=== PATIENT | male | born 1965 | race Caucasian/White ===

== ENCOUNTER 2022-01-18 10:17 | Inpatient (IN) | payer OTHER ==
[2022-01-18] MEDS ORDERED: BISMUTH SUBSALICYLATE 262 MG/15 ML BTL PO PRN (11:54)
[2022-01-18] MEDS ORDERED: NALOXONE HCL (KLOXXADO) 8 MG SPRAY NS PRN (11:54)
[2022-01-18] MEDS ORDERED: MAGNESIUM HYDROX 2400MG/30ML ORAL SUSPENSION 30 ML CUP PO PRN (11:54)
[2022-01-18] MEDS ORDERED: ONDANSETRON *ODT* 4 MG TABLET SL PRN (11:54)
[2022-01-18] MEDS ORDERED: MAG HYDROX/AL HYDROX/SIMETH 30 ML UNIT-DOSE CUP PO PRN (11:54)
[2022-01-18] MEDS ORDERED: NICOTINE 10 MG CARTRIDGE (INHALER) IH PRN (11:54)
[2022-01-18] MEDS ORDERED: NICOTINE POLACRILEX 2 MG GUM BUC PRN (11:54)
[2022-01-18] MEDS ORDERED: BENZOCAINE/MENTHOL (CHLORASEPTIC ) LOZENGE MM PRN (11:54)
[2022-01-18] MEDS ORDERED: DICYCLOMINE HCL 10 MG CAPSULE PO PRN (11:54)
[2022-01-18] MEDS ORDERED: MAGNESIUM CITRATE 300 ML BOTTLE PO PRN (11:54)
[2022-01-18] MEDS ORDERED: IBUPROFEN 600 MG TABLET (FP) PO PRN (11:54)
[2022-01-18] MEDS ORDERED: ACETAMINOPHEN 325 MG TABLET (FP) PO PRN ×2 (11:54)
[2022-01-18] MEDS ORDERED: IBUPROFEN 400 MG TABLET (FP) PO PRN (11:54)
[2022-01-18] MEDS ORDERED: LOPERAMIDE HCL 2 MG CAPSULE PO PRN (11:54)
[2022-01-18] MEDS ORDERED: IBUPROFEN 400 MG TABLET (FP) PO ONE (12:07)
[2022-01-18] MEDS: METHOCARBAMOL 500 MG TABLET PO PRN (12:33)
[2022-01-18] MEDS: hydrOXYzine PAMOATE 25 MG CAPSULE (FP) PO SCH ×3 (13:44→22:19)
[2022-01-18 15:59] LABS: HEMATOCRIT 38.3 % (35.4-49); HEMOGLOBIN 12.7 GM/dL (11.7-16.9); MCH 30.7 pg (25.7-33.7); MCHC 33.2 g/dl (32.0-35.9); MEAN CELL VOLUME 92.4 fl (80-96); MEAN PLT VOLUME 9.5 fl (7.5-11.1); PLATELET COUNT 169 10^3/uL (134-434); RBC 4.14 M/mm3 (4.00-5.60); RDW 15.3 % (11.9-15.9); WHITE BLOOD COUNT 5.6 K/mm3 (4.0-10.0)
[2022-01-18 16:08] LABS: CREATININE 1.1 mg/dL (0.55-1.3)
[2022-01-18 16:10] LABS: ALBUMIN 3.9 g/dl (3.4-5.0); BLOOD UREA NITROGEN 19.6 mg/dL (7-18); CALCIUM 9.2 mg/dL (8.5-10.1)
[2022-01-18 16:11] LABS: BILIRUBIN,TOTAL 0.5 mg/dL (0.2-1); TOT PROT 7.4 g/dl (6.4-8.2)
[2022-01-18] MEDS: THIAMINE HCL 100 MG TABLET (FP) PO SCH (22:19)
[2022-01-18] MEDS: MELATONIN 5 MG TABLETS PO SCH (22:19)
[2022-01-19] MEDS ORDERED: methaDONE HCL 10 MG TABLET ONE (04:33)
[2022-01-19] MEDS ORDERED: methaDONE HCL 40 MG DISPERSABLE TABLET ONE (04:33)
[2022-01-19] MEDS ORDERED: methaDONE HCL 10 MG TABLET PO SCH (06:00)
[2022-01-19] MEDS: methaDONE 40 MG, methaDONE 30 MG PO SCH (06:11)
[2022-01-19] MEDS: hydrOXYzine PAMOATE 25 MG CAPSULE (FP) PO SCH ×5 (06:11→22:55)
[2022-01-19] MEDS: PRENATAL VITAMINS W/ FOLIC ACID TABLET (FP) PO SCH (11:08)
[2022-01-19] MEDS: MELATONIN 5 MG TABLETS PO SCH (22:55)
[2022-01-19] MEDS: THIAMINE HCL 100 MG TABLET (FP) PO SCH (22:55)
[2022-01-20] MEDS ORDERED: methaDONE HCL 40 MG DISPERSABLE TABLET ONE (04:45)
[2022-01-20] MEDS ORDERED: methaDONE HCL 10 MG TABLET ONE (04:45)
[2022-01-20] MEDS: methaDONE 40 MG, methaDONE 30 MG PO SCH (05:42)
[2022-01-20] MEDS: hydrOXYzine PAMOATE 25 MG CAPSULE (FP) PO SCH ×3 (05:42→13:25)
[2022-01-20 09:36] VITALS: BP 123/77; PULSE 59; TEMP 97
[2022-01-20] MEDS: PRENATAL VITAMINS W/ FOLIC ACID TABLET (FP) PO SCH (11:21)
[2022-01-20] MEDS: METHOCARBAMOL 500 MG TABLET PO PRN (11:21)
== END 2022-01-20 16:10 | disposition home or self-care (01) | DRG 773 ==
LOC: YASAS 10:17 → Y6N 11:57
PROVIDERS: ADMIT Allergy & Immunology; ATTEND Surgery
PROC: HZ2ZZZZ Detoxification Services for Substance Abuse Treatment (ICD-10-PCS; principal; 2022-01-18)
DX: F11.23 Opioid dependence with withdrawal (principal); F10.230 Alcohol dependence with withdrawal, uncomplicated; F14.20 Cocaine dependence, uncomplicated; F16.20 Hallucinogen dependence, uncomplicated; F12.20 Cannabis dependence, uncomplicated; F17.210 Nicotine dependence, cigarettes, uncomplicated; M17.11 Unilateral primary osteoarthritis, right knee; R26.89 Other abnormalities of gait and mobility; Z51.81 Encounter for therapeutic drug level monitoring
CPT/HCPCS: 36415; 80053; 85027; 86780; 87811; 93005; 93010; C9803-CS; U0003; U0005

== ENCOUNTER 2022-07-29 09:37 | Inpatient (IN) | payer OTHER ==
[2022-07-29 10:11] VITALS: BMI 28.8
[2022-07-29] MEDS ORDERED: MAGNESIUM HYDROX 2400MG/30ML ORAL SUSPENSION 30 ML CUP PO PRN (14:47)
[2022-07-29] MEDS ORDERED: P-EPHED 60MG/TRIPROLIDI 2.5MG TABLET PO PRN (14:47)
[2022-07-29] MEDS ORDERED: POLYETHYLENE GLYCOL (HEALTHYLAX) 3350 17 GM PACKET PO PRN (14:47)
[2022-07-29] MEDS ORDERED: LOPERAMIDE HCL 2 MG CAPSULE PO PRN (14:47)
[2022-07-29] MEDS ORDERED: BENZOCAINE/MENTHOL (CHLORASEPTIC ) LOZENGE MM PRN (14:47)
[2022-07-29] MEDS ORDERED: MAG HYDROX/AL HYDROX/SIMETH 30 ML UNIT-DOSE CUP PO PRN (14:47)
[2022-07-29] MEDS ORDERED: guaiFENesin 200 MG/10 ML 10 ML UNIT-DOSE CUPS PO PRN (14:47)
[2022-07-29] MEDS ORDERED: ALBUTEROL SO4 HFA INHALER IH PRN (14:57)
[2022-07-29] MEDS: THIAMINE HCL 100 MG TABLET (FP) PO SCH (21:31)
[2022-07-29] MEDS: MELATONIN 5 MG TABLETS PO SCH (21:31)
[2022-07-29] MEDS: hydrOXYzine PAMOATE 25 MG CAPSULE (FP) PO PRN (21:31)
[2022-07-30] MEDS: NICOTINE 7 MG/24 HOURS TOPICAL PATCH TD SCH (10:07)
[2022-07-30] MEDS: PRENATAL VITAMINS W/ FOLIC ACID TABLET (FP) PO SCH (10:07)
[2022-07-30] MEDS: THIAMINE HCL 100 MG TABLET (FP) PO SCH (21:25)
[2022-07-30] MEDS: MELATONIN 5 MG TABLETS PO SCH (21:25)
[2022-07-31] MEDS ORDERED: methaDONE HCL 10 MG TABLET PO ONE (09:56)
[2022-07-31] MEDS: PRENATAL VITAMINS W/ FOLIC ACID TABLET (FP) PO SCH (10:11)
[2022-07-31] MEDS: NICOTINE 7 MG/24 HOURS TOPICAL PATCH TD SCH (10:11)
[2022-07-31] MEDS ORDERED: methaDONE 40 MG, methaDONE 30 MG PO ONE (10:30)
[2022-07-31] MEDS ORDERED: PRENATAL VITAMINS W/ FOLIC ACID TABLET (FP) PO PRN (11:13)
[2022-07-31] MEDS ORDERED: NICOTINE 7 MG/24 HOURS TOPICAL PATCH TD PRN (11:14)
[2022-07-31 12:07] LABS: HEMATOCRIT 45.9 % (35.4-49); HEMOGLOBIN 14.9 GM/dL (11.7-16.9); MCH 29.6 pg (25.7-33.7); MCHC 32.4 g/dl (32.0-35.9); MEAN CELL VOLUME 91.5 fl (80-96); MEAN PLT VOLUME 9.5 fl (7.5-11.1); PLATELET COUNT 199 10^3/uL (134-434); RBC 5.02 M/mm3 (4.00-5.60); WHITE BLOOD COUNT 3.4 K/mm3 (4.0-10.0)
[2022-07-31 12:13] LABS: CALCIUM 9.4 mg/dL (8.5-10.1)
[2022-07-31 12:20] LABS: ALBUMIN 3.2 g/dl (3.4-5.0); BLOOD UREA NITROGEN 19.1 mg/dL (7-18)
[2022-07-31 12:23] LABS: CREATININE 1.1 mg/dL (0.55-1.3)
[2022-07-31 12:25] LABS: BILIRUBIN,TOTAL 0.6 mg/dL (0.2-1); TOT PROT 7.4 g/dl (6.4-8.2)
[2022-07-31 20:12] LABS: PH,URINE 7.5 (5.0-8.0); URINE APPEARANCE CLEAR; URINE BILIRUBIN NEGATIVE (NEGATIVE); URINE COLOR YELLOW; URINE GLUCOSE (UA) NEGATIVE (NEGATIVE); URINE KETONE NEGATIVE (NEGATIVE); URINE LEUK ESTERASE NEGATIVE (NEGATIVE); URINE NITRITE NEGATIVE (NEGATIVE); URINE PROTEIN NEGATIVE (NEGATIVE)
[2022-07-31] MEDS: MELATONIN 5 MG TABLETS PO SCH (21:34)
[2022-07-31] MEDS: hydrOXYzine PAMOATE 25 MG CAPSULE (FP) PO PRN (21:34)
[2022-07-31] MEDS: THIAMINE HCL 100 MG TABLET (FP) PO SCH (21:34)
[2022-08-01] MEDS: methaDONE HCL 40 MG DISPERSABLE TABLET PO SCH ×3 (07:07→07:16)
[2022-08-01] MEDS: NICOTINE 10 MG CARTRIDGE (INHALER) IH PRN (08:56)
[2022-08-01] MEDS: BACLOFEN 10 MG TABLET (FP) PO PRN (15:40)
[2022-08-01] MEDS: MELATONIN 5 MG TABLETS PO SCH (21:12)
[2022-08-01] MEDS: THIAMINE HCL 100 MG TABLET (FP) PO SCH (21:12)
[2022-08-01] MEDS: ACETAMINOPHEN 325 MG TABLET (FP) PO PRN (21:13)
[2022-08-02] MEDS: methaDONE HCL 40 MG DISPERSABLE TABLET PO SCH (06:41)
[2022-08-02] MEDS: ACETAMINOPHEN 325 MG TABLET (FP) PO PRN (19:39)
[2022-08-02] MEDS: THIAMINE HCL 100 MG TABLET (FP) PO SCH (21:12)
[2022-08-02] MEDS: MELATONIN 5 MG TABLETS PO SCH (21:12)
[2022-08-03] MEDS: methaDONE HCL 40 MG DISPERSABLE TABLET PO SCH (06:55)
[2022-08-03] MEDS: NICOTINE 10 MG CARTRIDGE (INHALER) IH PRN (11:52)
[2022-08-03] MEDS: BACLOFEN 10 MG TABLET (FP) PO PRN ×2 (15:41→21:12)
[2022-08-03] MEDS: THIAMINE HCL 100 MG TABLET (FP) PO SCH (21:12)
[2022-08-03] MEDS: MELATONIN 5 MG TABLETS PO SCH (21:12)
[2022-08-03] MEDS: hydrOXYzine PAMOATE 25 MG CAPSULE (FP) PO PRN (21:12)
[2022-08-04] MEDS: methaDONE HCL 40 MG DISPERSABLE TABLET PO SCH (06:21)
[2022-08-04] MEDS: BACLOFEN 10 MG TABLET (FP) PO PRN (21:16)
[2022-08-04] MEDS: THIAMINE HCL 100 MG TABLET (FP) PO SCH (21:16)
[2022-08-04] MEDS: MELATONIN 5 MG TABLETS PO SCH (21:16)
[2022-08-05] MEDS: IBUPROFEN 400 MG TABLET (FP) PO PRN (00:38)
[2022-08-05] MEDS: methaDONE HCL 40 MG DISPERSABLE TABLET PO SCH (06:09)
[2022-08-05] MEDS: BACLOFEN 10 MG TABLET (FP) PO PRN ×2 (09:27→21:09)
[2022-08-05] MEDS: MELATONIN 5 MG TABLETS PO SCH (21:09)
[2022-08-05] MEDS: THIAMINE HCL 100 MG TABLET (FP) PO SCH (21:09)
[2022-08-05] MEDS: hydrOXYzine PAMOATE 25 MG CAPSULE (FP) PO PRN (21:09)
[2022-08-06] MEDS: methaDONE HCL 40 MG DISPERSABLE TABLET PO SCH (06:17)
[2022-08-06] MEDS: NICOTINE 10 MG CARTRIDGE (INHALER) IH PRN (11:17)
[2022-08-06] MEDS: IBUPROFEN 400 MG TABLET (FP) PO PRN (18:38)
[2022-08-06] MEDS: THIAMINE HCL 100 MG TABLET (FP) PO SCH (21:01)
[2022-08-06] MEDS: hydrOXYzine PAMOATE 25 MG CAPSULE (FP) PO PRN (21:01)
[2022-08-06] MEDS: BACLOFEN 10 MG TABLET (FP) PO PRN (21:01)
[2022-08-06] MEDS: MELATONIN 5 MG TABLETS PO SCH (21:01)
[2022-08-07] MEDS: methaDONE HCL 40 MG DISPERSABLE TABLET PO SCH (06:40)
[2022-08-07] MEDS: NICOTINE 10 MG CARTRIDGE (INHALER) IH PRN (10:16)
[2022-08-07] MEDS: BACLOFEN 10 MG TABLET (FP) PO PRN (21:15)
[2022-08-07] MEDS: hydrOXYzine PAMOATE 25 MG CAPSULE (FP) PO PRN (21:15)
[2022-08-07] MEDS: MELATONIN 5 MG TABLETS PO SCH (21:15)
[2022-08-07] MEDS: THIAMINE HCL 100 MG TABLET (FP) PO SCH (21:15)
[2022-08-08] MEDS: methaDONE HCL 40 MG DISPERSABLE TABLET PO SCH (06:05)
[2022-08-08 06:29] VITALS: BP 109/75; PULSE 64; RESP 16; TEMP 97.1
== END 2022-08-08 09:28 | disposition home or self-care (01) | DRG 772 ==
LOC: YASAS 09:37 → Y3E 15:24
PROVIDERS: ADMIT Allergy & Immunology; ATTEND Psychiatry & Neurology Pain Medicine
PROC: HZ42ZZZ Group Counseling for Substance Abuse Treatment, Cognitive-Behavioral (ICD-10-PCS; principal; 2022-07-29)
DX: F11.20 Opioid dependence, uncomplicated (principal); F10.20 Alcohol dependence, uncomplicated; F14.20 Cocaine dependence, uncomplicated; F17.210 Nicotine dependence, cigarettes, uncomplicated; F20.9 Schizophrenia, unspecified; F19.24 Other psychoactive substance dependence with psychoactive substance-induced mood disorder; F32.A Depression, unspecified; J45.909 Unspecified asthma, uncomplicated; R73.03 Prediabetes; Z99.89 Dependence on other enabling machines and devices; Z56.0 Unemployment, unspecified; Z59.00 Homelessness unspecified
CPT/HCPCS: 36415; 80053; 81003; 82962; 85027; 86780; 86803; 87522; 87811; C9803-CS; J0475; U0003; U0005

== ENCOUNTER 2022-09-27 15:45 | Inpatient (IN) | payer OTHER ==
[2022-09-27 16:34] VITALS: BMI 29.2
[2022-09-27] MEDS ORDERED: IBUPROFEN 400 MG TABLET (FP) PO PRN (17:32)
[2022-09-27] MEDS ORDERED: P-EPHED 60MG/TRIPROLIDI 2.5MG TABLET PO PRN (17:32)
[2022-09-27] MEDS ORDERED: ACETAMINOPHEN 325 MG TABLET (FP) PO PRN ×2 (17:32)
[2022-09-27] MEDS ORDERED: NALOXONE HCL 0.4 MG/ML VIAL IM PRN (17:32)
[2022-09-27] MEDS ORDERED: ONDANSETRON *ODT* 4 MG TABLET SL PRN (17:32)
[2022-09-27] MEDS ORDERED: POLYETHYLENE GLYCOL (HEALTHYLAX) 3350 17 GM PACKET PO PRN (17:32)
[2022-09-27] MEDS ORDERED: LOPERAMIDE HCL 2 MG CAPSULE PO PRN (17:32)
[2022-09-27] MEDS ORDERED: NICOTINE 10 MG CARTRIDGE (INHALER) IH PRN (17:32)
[2022-09-27] MEDS ORDERED: BENZOCAINE/MENTHOL (CHLORASEPTIC ) LOZENGE MM PRN (17:32)
[2022-09-27] MEDS ORDERED: NICOTINE POLACRILEX 2 MG GUM BUC PRN (17:32)
[2022-09-27] MEDS ORDERED: MELATONIN 5 MG TABLETS PO PRN (17:32)
[2022-09-27] MEDS ORDERED: ALBUTEROL SO4 HFA INHALER IH PRN (17:32)
[2022-09-27] MEDS ORDERED: hydrOXYzine PAMOATE 25 MG CAPSULE (FP) PO PRN (17:32)
[2022-09-27] MEDS ORDERED: MAGNESIUM HYDROX 2400MG/30ML ORAL SUSPENSION 30 ML CUP PO PRN (17:32)
[2022-09-27] MEDS ORDERED: guaiFENesin 200 MG/10 ML 10 ML UNIT-DOSE CUPS PO PRN (17:32)
[2022-09-27] MEDS ORDERED: MAG HYDROX/AL HYDROX/SIMETH 30 ML UNIT-DOSE CUP PO PRN (17:32)
[2022-09-27] MEDS ORDERED: DICYCLOMINE HCL 10 MG CAPSULE PO PRN (17:32)
[2022-09-27] MEDS ORDERED: IBUPROFEN 600 MG TABLET (FP) PO PRN (17:32)
[2022-09-27] MEDS ORDERED: BISMUTH SUBSALICYLATE 524 MG/30 ML PO PRN (17:32)
[2022-09-27] MEDS ORDERED: NALOXONE HCL (KLOXXADO) 8 MG SPRAY NS PRN (17:32)
[2022-09-27] MEDS ORDERED: diazePAM 5 MG TABLET PO PRN (17:35)
[2022-09-27] MEDS ORDERED: BACITRACIN ZINC 15 GM TUBE TOPICAL OINTMENT TP SCH (17:45)
[2022-09-27] MEDS: SULFAMETHOXAZOLE/TRIMETHOPRIM 800MG/160MG D.S. TABLET PO SCH (22:23)
[2022-09-27] MEDS: THIAMINE HCL 100 MG TABLET (FP) PO SCH (22:23)
[2022-09-27] MEDS: BACITRACIN 0.9 GM PACKET TP SCH (22:24)
[2022-09-28] MEDS: METHOCARBAMOL 500 MG TABLET PO PRN ×2 (00:45→10:09)
[2022-09-28] MEDS ORDERED: LORazepam 1 MG TABLET PO PRN (08:58)
[2022-09-28] MEDS: BACITRACIN 0.9 GM PACKET TP SCH ×2 (10:08→22:18)
[2022-09-28] MEDS: LORazepam 2 MG TABLET PO SCH ×3 (10:08→22:18)
[2022-09-28] MEDS: methaDONE HCL 40 MG DISPERSABLE TABLET PO SCH (10:08)
[2022-09-28] MEDS: SULFAMETHOXAZOLE/TRIMETHOPRIM 800MG/160MG D.S. TABLET PO SCH ×2 (10:09→22:18)
[2022-09-28] MEDS: PRENATAL VITAMINS W/ FOLIC ACID TABLET (FP) PO SCH (10:09)
[2022-09-28 11:14] LABS: HEMATOCRIT 36.5 % (35.4-49); HEMOGLOBIN 11.9 GM/dL (11.7-16.9); MCH 29.5 pg (25.7-33.7); MCHC 32.6 g/dl (32.0-35.9); MEAN CELL VOLUME 90.6 fl (80-96); MEAN PLT VOLUME 9.8 fl (7.5-11.1); PLATELET COUNT 182 10^3/uL (134-434); RBC 4.03 M/mm3 (4.00-5.60); RDW 15.5 % (11.9-15.9); WHITE BLOOD COUNT 5.5 K/mm3 (4.0-10.0)
[2022-09-28 11:46] LABS: BLOOD UREA NITROGEN 23.4 mg/dL (7-18)
[2022-09-28 11:55] LABS: ALBUMIN 3.2 g/dl (3.4-5.0); CALCIUM 8.9 mg/dL (8.5-10.1)
[2022-09-28 11:58] LABS: CREATININE 1.3 mg/dL (0.55-1.3)
[2022-09-28 12:00] LABS: BILIRUBIN,TOTAL 0.4 mg/dL (0.2-1); TOT PROT 7.1 g/dl (6.4-8.2)
[2022-09-28] MEDS: THIAMINE HCL 100 MG TABLET (FP) PO SCH (22:18)
[2022-09-29] MEDS: methaDONE HCL 40 MG DISPERSABLE TABLET PO SCH (05:52)
[2022-09-29] MEDS: LORazepam 2 MG TABLET PO SCH ×2 (05:52→10:19)
[2022-09-29 09:15] VITALS: BP 113/87; PULSE 74; RESP 15; TEMP 97.7
[2022-09-29] MEDS: SULFAMETHOXAZOLE/TRIMETHOPRIM 800MG/160MG D.S. TABLET PO SCH (10:16)
[2022-09-29] MEDS: PRENATAL VITAMINS W/ FOLIC ACID TABLET (FP) PO SCH (10:16)
[2022-09-29] MEDS: BACITRACIN 0.9 GM PACKET TP SCH (10:16)
[2022-09-29] MEDS: METHOCARBAMOL 500 MG TABLET PO PRN (10:16)
[2022-09-30] MEDS ORDERED: LORazepam 1 MG TABLET PO SCH (05:00)
[2022-10-01] MEDS ORDERED: LORazepam 0.5 MG TABLET PO PRN
[2022-10-01] MEDS ORDERED: LORazepam 0.5 MG TABLET PO SCH (05:00)
[2022-10-02] MEDS ORDERED: LORazepam 0.5 MG TABLET PO ONE (05:00)
== END 2022-09-29 12:45 | disposition left against medical advice (07) | DRG 770 ==
LOC: YASAS 15:45 → Y6N 17:54
PROVIDERS: ADMIT Allergy & Immunology; ATTEND Surgery
PROC: HZ2ZZZZ Detoxification Services for Substance Abuse Treatment (ICD-10-PCS; principal; 2022-09-27)
DX: F10.230 Alcohol dependence with withdrawal, uncomplicated (principal); F11.20 Opioid dependence, uncomplicated; F14.20 Cocaine dependence, uncomplicated; F16.20 Hallucinogen dependence, uncomplicated; F17.210 Nicotine dependence, cigarettes, uncomplicated; J45.909 Unspecified asthma, uncomplicated
CPT/HCPCS: 36415; 80053; 83036; 84520; 85027; 86780; 87811; C9803-CS; U0003; U0005

== ENCOUNTER 2023-05-21 16:34 | Inpatient (IN) | payer OTHER ==
[2023-05-21 18:26] VITALS: BMI 28.3
[2023-05-21] MEDS ORDERED: NALOXONE HCL (KLOXXADO) 8 MG SPRAY NS PRN (21:22)
[2023-05-21] MEDS ORDERED: COLLOIDAL OATMEAL 1 BAR EACH TP PRN (21:22)
[2023-05-21] MEDS ORDERED: IBUPROFEN 400 MG TABLET (FP) PO PRN (21:22)
[2023-05-21] MEDS ORDERED: POLYETHYLENE GLYCOL (HEALTHYLAX) 3350 17 GM PACKET PO PRN (21:22)
[2023-05-21] MEDS ORDERED: LOPERAMIDE HCL 2 MG CAPSULE PO PRN (21:22)
[2023-05-21] MEDS ORDERED: BENZOCAINE/MENTHOL (CHLORASEPTIC ) LOZENGE MM PRN (21:22)
[2023-05-21] MEDS ORDERED: NALOXONE HCL 0.4 MG/ML VIAL IM PRN (21:22)
[2023-05-21] MEDS ORDERED: MAG HYDROX/AL HYDROX/SIMETH 30 ML UNIT-DOSE CUP PO PRN (21:22)
[2023-05-21] MEDS ORDERED: hydrOXYzine PAMOATE 25 MG CAPSULE (FP) PO PRN (21:22)
[2023-05-21] MEDS ORDERED: MAGNESIUM HYDROX 2400MG/30ML ORAL SUSPENSION 30 ML CUP PO PRN (21:22)
[2023-05-21] MEDS ORDERED: guaiFENesin 600 MG TABLET.ER (FP) PO PRN (21:22)
[2023-05-21] MEDS ORDERED: BENZONATATE 200 MG CAPSULE PO PRN (21:22)
[2023-05-21] MEDS: THIAMINE HCL 100 MG TABLET (FP) PO SCH (23:40)
[2023-05-21] MEDS: MELATONIN 5 MG TABLETS PO SCH (23:40)
[2023-05-22] MEDS ORDERED: TUBERCULIN PPD 5 TU/0.1ML SYRINGE (IN PATIENT USE ONLY) ID ONE (01:24)
[2023-05-22] MEDS ORDERED: ALBUTEROL SO4 HFA INHALER IH PRN (06:08)
[2023-05-22] MEDS: NICOTINE 14 MG/24 HOURS TOPICAL PATCH TD SCH (09:49)
[2023-05-22] MEDS: PRENATAL VITAMINS W/ FOLIC ACID TABLET (FP) PO SCH (09:49)
[2023-05-22] MEDS ORDERED: TUBERCULIN PPD 5 TU/0.1ML VIAL ID ONE (10:57)
[2023-05-22 11:51] LABS: CHLORIDE 108 mmol/L (98-107); POTASSIUM 4.1 mmol/L (3.5-5.1); SODIUM 141 mmol/L (136-145)
[2023-05-22 11:55] LABS: ANION GAP 5 mmol/L (4-13); BLOOD UREA NITROGEN 19.9 mg/dL (7-18); CALCIUM 8.8 mg/dL (8.5-10.1); CO2 29 mmol/L (21-32)
[2023-05-22 11:56] LABS: CREATININE 0.8 mg/dL (0.55-1.3); GLUCOSE,RANDOM 99 mg/dL (74-106)
[2023-05-22 11:57] LABS: SGOT/AST 31 U/L (15-37); SGPT/ALT 40 U/L (13-61)
[2023-05-22 11:58] LABS: TOT PROT 6.7 g/dl (6.4-8.2)
[2023-05-22 11:59] LABS: ALK PHOS 65 U/L (45-117)
[2023-05-22 12:01] LABS: HEMOGLOBIN 12.9 GM/dL (11.7-16.9); MCH 29.6 pg (25.7-33.7); MEAN CELL VOLUME 89.5 fl (80-96); MEAN PLT VOLUME 8.8 fl (7.5-11.1); PLATELET COUNT 243 10^3/uL (134-434); RBC 4.36 M/mm3 (4.00-5.60); RDW 15.6 % (11.9-15.9); WHITE BLOOD COUNT 4.5 K/mm3 (4.0-10.0)
[2023-05-22 12:19] LABS: SYPHILIS W/ RPR CONF NON-REACTIVE (NONREACTIVE)
[2023-05-22 15:30] LABS: EPI CELLS 7 /uL (0-25.1); HYALINE CASTS 1 /uL (0-3.1); URINE APPEARANCE CLEAR; URINE BACTERIA 45 /uL (0-1359); URINE BILIRUBIN NEGATIVE (NEGATIVE); URINE COLOR YELLOW; URINE GLUCOSE (UA) NEGATIVE (NEGATIVE); URINE KETONE NEGATIVE (NEGATIVE); URINE LEUK ESTERASE TRACE (NEGATIVE); URINE NITRITE NEGATIVE (NEGATIVE); URINE PROTEIN TRACE (NEGATIVE); URINE RBC 8 /uL (0-23.9); URINE WBC 32 /uL (0-25.8)
[2023-05-22] MEDS: THIAMINE HCL 100 MG TABLET (FP) PO SCH (22:07)
[2023-05-22] MEDS: MELATONIN 5 MG TABLETS PO SCH (22:07)
[2023-05-23] MEDS: PRENATAL VITAMINS W/ FOLIC ACID TABLET (FP) PO SCH (10:38)
[2023-05-23] MEDS: NICOTINE 14 MG/24 HOURS TOPICAL PATCH TD SCH (10:38)
[2023-05-23] MEDS ORDERED: BUPRENORPHINE/NALOXONE 8 MG/2 MG FILM PACKET SL ONE (15:18)
[2023-05-23] MEDS: THIAMINE HCL 100 MG TABLET (FP) PO SCH (21:05)
[2023-05-23] MEDS: MELATONIN 5 MG TABLETS PO SCH (21:05)
[2023-05-24] MEDS: BUPRENORPHINE/NALOXONE 8 MG/2 MG FILM PACKET SL SCH ×2 (10:27→21:03)
[2023-05-24] MEDS: NICOTINE 14 MG/24 HOURS TOPICAL PATCH TD SCH (10:28)
[2023-05-24] MEDS: PRENATAL VITAMINS W/ FOLIC ACID TABLET (FP) PO SCH (10:29)
[2023-05-24] MEDS: NICOTINE POLACRILEX 2 MG GUM BUC PRN (10:30)
[2023-05-24] MEDS: IBUPROFEN 600 MG TABLET (FP) PO PRN (14:14)
[2023-05-24] MEDS: MELATONIN 5 MG TABLETS PO SCH (21:03)
[2023-05-24] MEDS: THIAMINE HCL 100 MG TABLET (FP) PO SCH (21:03)
[2023-05-25] MEDS: IBUPROFEN 600 MG TABLET (FP) PO PRN ×3 (02:31→18:59)
[2023-05-25] MEDS: BUPRENORPHINE/NALOXONE 8 MG/2 MG FILM PACKET SL SCH ×3 (06:36→18:55)
[2023-05-25] MEDS: NICOTINE 14 MG/24 HOURS TOPICAL PATCH TD SCH (10:07)
[2023-05-25] MEDS: PRENATAL VITAMINS W/ FOLIC ACID TABLET (FP) PO SCH (10:07)
[2023-05-25] MEDS: NICOTINE POLACRILEX 2 MG GUM BUC PRN (10:08)
[2023-05-25 11:00] VITALS: RESP 18
[2023-05-25] MEDS: MELATONIN 5 MG TABLETS PO SCH (21:25)
[2023-05-25] MEDS: THIAMINE HCL 100 MG TABLET (FP) PO SCH (21:25)
[2023-05-26] MEDS: BUPRENORPHINE/NALOXONE 8 MG/2 MG FILM PACKET SL SCH ×3 (06:21→17:05)
[2023-05-26] MEDS: NICOTINE 14 MG/24 HOURS TOPICAL PATCH TD SCH (09:17)
[2023-05-26] MEDS: PRENATAL VITAMINS W/ FOLIC ACID TABLET (FP) PO SCH (09:17)
[2023-05-26] MEDS: NICOTINE POLACRILEX 2 MG GUM BUC PRN (09:18)
[2023-05-26] MEDS: IBUPROFEN 600 MG TABLET (FP) PO PRN (09:19)
[2023-05-26] MEDS: ACETAMINOPHEN 325 MG TABLET (FP) PO PRN (16:22)
[2023-05-26] MEDS: MELATONIN 5 MG TABLETS PO SCH (21:24)
[2023-05-26] MEDS: THIAMINE HCL 100 MG TABLET (FP) PO SCH (21:24)
[2023-05-27] MEDS: ACETAMINOPHEN 325 MG TABLET (FP) PO PRN (01:14)
[2023-05-27] MEDS: BUPRENORPHINE/NALOXONE 8 MG/2 MG FILM PACKET SL SCH (06:33)
[2023-05-27] MEDS: IBUPROFEN 600 MG TABLET (FP) PO PRN (06:34)
[2023-05-27 07:07] VITALS: BP 142/78; PULSE 60; TEMP 97.3
[2023-05-27] MEDS: NICOTINE 14 MG/24 HOURS TOPICAL PATCH TD SCH (10:07)
[2023-05-27] MEDS: PRENATAL VITAMINS W/ FOLIC ACID TABLET (FP) PO SCH (10:07)
== END 2023-05-27 09:25 | disposition home or self-care (01) | DRG 772 ==
LOC: YASAS 16:34 → Y3W 23:24
PROVIDERS: ADMIT Allergy & Immunology; ATTEND Psychiatry & Neurology Pain Medicine
PROC: HZ42ZZZ Group Counseling for Substance Abuse Treatment, Cognitive-Behavioral (ICD-10-PCS; principal; 2023-05-21)
DX: F11.20 Opioid dependence, uncomplicated (principal); F14.20 Cocaine dependence, uncomplicated; F16.20 Hallucinogen dependence, uncomplicated; F17.210 Nicotine dependence, cigarettes, uncomplicated; F20.9 Schizophrenia, unspecified; F32.A Depression, unspecified; Z86.19 Personal history of other infectious and parasitic diseases; M25.561 Pain in right knee; Z99.89 Dependence on other enabling machines and devices
CPT/HCPCS: 36415; 80053; 80307; 81003; 85027; 86780; 86803; 87522; 87635; 93005; 93010

== ENCOUNTER 2023-09-10 11:50 | Inpatient (IN) | payer OTHER ==
[2023-09-10 12:14] VITALS: BMI 28.3
[2023-09-10] MEDS ORDERED: NALOXONE HCL 0.4 MG/ML VIAL IM PRN (13:30)
[2023-09-10] MEDS ORDERED: BISMUTH SUBSALICYLATE 262 MG/15 ML BTL PO PRN (13:30)
[2023-09-10] MEDS ORDERED: NALOXONE HCL (KLOXXADO) 8 MG SPRAY NS PRN (13:30)
[2023-09-10] MEDS ORDERED: ONDANSETRON *ODT* 4 MG TABLET SL PRN (13:30)
[2023-09-10] MEDS ORDERED: POLYETHYLENE GLYCOL (HEALTHYLAX) 3350 17 GM PACKET PO PRN (13:30)
[2023-09-10] MEDS ORDERED: guaiFENesin 600 MG TABLET.ER (FP) PO PRN (13:30)
[2023-09-10] MEDS ORDERED: MAGNESIUM HYDROX 2400MG/30ML ORAL SUSPENSION 30 ML CUP PO PRN (13:30)
[2023-09-10] MEDS ORDERED: BENZONATATE 200 MG CAPSULE PO PRN (13:30)
[2023-09-10] MEDS ORDERED: LOPERAMIDE HCL 2 MG CAPSULE PO PRN (13:30)
[2023-09-10] MEDS ORDERED: DICYCLOMINE HCL 10 MG CAPSULE PO PRN (13:30)
[2023-09-10] MEDS ORDERED: MAG HYDROX/AL HYDROX/SIMETH 30 ML UNIT-DOSE CUP PO PRN (13:30)
[2023-09-10] MEDS ORDERED: BENZOCAINE/MENTHOL (CHLORASEPTIC ) LOZENGE MM PRN (13:30)
[2023-09-10] MEDS: NICOTINE 21 MG/24 HOURS TOPICAL PATCH TD SCH (13:45)
[2023-09-10] MEDS: PRENATAL VITAMINS W/ FOLIC ACID TABLET (FP) PO SCH (13:45)
[2023-09-10] MEDS ORDERED: BUPRENORPHINE HCL 150 MCG, BUPRENORPHINE HCL 75 MCG BC PRN (18:37)
[2023-09-10] MEDS: BUPRENORPHINE HCL 150 MCG, BUPRENORPHINE HCL 75 MCG BC ONE (19:36)
[2023-09-10] MEDS: cloNIDine HCL 0.1 MG TABLET PO ONE (19:36)
[2023-09-10] MEDS: diazePAM 5 MG TABLET PO PRN (22:22)
[2023-09-10] MEDS: MELATONIN 5 MG TABLETS PO SCH (22:22)
[2023-09-10] MEDS: THIAMINE HCL 100 MG TABLET (FP) PO SCH (22:22)
[2023-09-11] MEDS ORDERED: BUPRENORPHINE HCL 150 MCG, BUPRENORPHINE HCL 75 MCG BC PRN
[2023-09-11] MEDS: BUPRENORPHINE HCL 150 MCG, BUPRENORPHINE HCL 75 MCG BC SCH (06:22)
[2023-09-11] MEDS: cloNIDine HCL 0.1 MG TABLET PO PRN (10:13)
[2023-09-11] MEDS: FLU VACCINE (FLULAVAL) PF 60 MCG/0.5 ML SYRINGE 2023-2024 IM ONE (12:08)
[2023-09-11] MEDS: IBUPROFEN 600 MG TABLET (FP) PO PRN (17:51)
[2023-09-12] MEDS: BUPRENORPHINE HCL 450 MCG FILM BC SCH (06:13)
[2023-09-12] MEDS: METHOCARBAMOL 500 MG TABLET PO PRN (12:59)
[2023-09-12] MEDS: IBUPROFEN 400 MG TABLET (FP) PO PRN (12:59)
[2023-09-12] MEDS: QUEtiapine FUMARATE 25 MG TABLET PO SCH (21:44)
[2023-09-13] MEDS: BUPRENORPHINE/NALOXONE 4 MG/1 MG FILM PACKET SL SCH (05:24)
[2023-09-13] MEDS: NICOTINE POLACRILEX 2 MG GUM BUC PRN (10:40)
[2023-09-13 10:44] LABS: POTASSIUM 4.2 mmol/L (3.5-5.1)
[2023-09-13 10:45] LABS: HEMATOCRIT 45.8 % (35.4-49); HEMOGLOBIN 15.7 GM/dL (11.7-16.9); MCH 31.1 pg (25.7-33.7); MCHC 34.2 g/dl (32.0-35.9); MEAN CELL VOLUME 90.8 fl (80-96); MEAN PLT VOLUME 9.4 fl (7.5-11.1); PLATELET COUNT 215 10^3/uL (134-434); RBC 5.04 M/mm3 (4.00-5.60); RDW 14.5 % (11.9-15.9); WHITE BLOOD COUNT 6.5 K/mm3 (4.0-10.0)
[2023-09-13 10:49] LABS: CALCIUM 9.4 mg/dL (8.5-10.1)
[2023-09-13 10:50] LABS: ALBUMIN 3.6 g/dl (3.4-5.0); BLOOD UREA NITROGEN 14.7 mg/dL (7-18)
[2023-09-13 10:53] LABS: BILIRUBIN,TOTAL 0.4 mg/dL (0.2-1); CREATININE 1.1 mg/dL (0.55-1.3)
[2023-09-13 10:54] LABS: TOT PROT 7.5 g/dl (6.4-8.2)
[2023-09-13] MEDS: ACETAMINOPHEN 325 MG TABLET (FP) PO PRN (20:50)
[2023-09-14] MEDS: BUPRENORPHINE/NALOXONE 8 MG/2 MG FILM PACKET SL ONE (05:49)
[2023-09-14 07:29] VITALS: RESP 17
[2023-09-14 09:14] VITALS: BP 106/76; PULSE 87; TEMP 96.9
== END 2023-09-14 12:33 | disposition home or self-care (01) | DRG 773 ==
LOC: YASAS 11:50 → Y3N 13:42
PROVIDERS: ADMIT Allergy & Immunology; ATTEND Surgery
PROC: HZ2ZZZZ Detoxification Services for Substance Abuse Treatment (ICD-10-PCS; principal; 2023-09-10)
DX: F11.23 Opioid dependence with withdrawal (principal); F10.20 Alcohol dependence, uncomplicated; F14.20 Cocaine dependence, uncomplicated; F16.20 Hallucinogen dependence, uncomplicated; F17.210 Nicotine dependence, cigarettes, uncomplicated; F25.0 Schizoaffective disorder, bipolar type; F19.280 Other psychoactive substance dependence with psychoactive substance-induced anxiety disorder; F19.282 Other psychoactive substance dependence with psychoactive substance-induced sleep disorder; F19.24 Other psychoactive substance dependence with psychoactive substance-induced mood disorder; Z87.09 Personal history of other diseases of the respiratory system; Z99.89 Dependence on other enabling machines and devices; Z56.0 Unemployment, unspecified; Z59.02 Unsheltered homelessness
CPT/HCPCS: 36415; 80053; 85027; 87635; 87811; 93005; 93010

== ENCOUNTER 2024-01-08 15:05 | Inpatient (IN) | payer OTHER ==
[2024-01-08 16:45] VITALS: BMI 33.3
[2024-01-08] MEDS ORDERED: BISMUTH SUBSALICYLATE 524 MG/30 ML PO PRN (18:35)
[2024-01-08] MEDS ORDERED: BENZONATATE 200 MG CAPSULE PO PRN (18:35)
[2024-01-08] MEDS ORDERED: LOPERAMIDE HCL 2 MG CAPSULE PO PRN (18:35)
[2024-01-08] MEDS ORDERED: NALOXONE (NARCAN) HCL 4 MG/0.1 ML SPRAY NS PRN (18:35)
[2024-01-08] MEDS ORDERED: ONDANSETRON *ODT* 4 MG TABLET SL PRN (18:35)
[2024-01-08] MEDS ORDERED: DOCUSATE SODIUM 100 MG CAPSULE (FP) PO PRN (18:35)
[2024-01-08] MEDS ORDERED: P-EPHED 60MG/TRIPROLIDI 2.5MG TABLET PO PRN (18:35)
[2024-01-08] MEDS ORDERED: guaiFENesin 600 MG TABLET.ER (FP) PO PRN (18:35)
[2024-01-08] MEDS ORDERED: NALOXONE HCL 0.4 MG/ML VIAL IM PRN (18:35)
[2024-01-08] MEDS ORDERED: NICOTINE POLACRILEX 2 MG LOZENGE BC PRN (18:35)
[2024-01-08] MEDS ORDERED: MAGNESIUM HYDROX 2400MG/30ML ORAL SUSPENSION 30 ML CUP PO PRN (18:35)
[2024-01-08] MEDS ORDERED: IBUPROFEN 400 MG TABLET (FP) PO PRN (18:35)
[2024-01-08] MEDS ORDERED: DICYCLOMINE HCL 10 MG CAPSULE PO PRN (18:35)
[2024-01-08] MEDS ORDERED: MAG HYDROX/AL HYDROX/SIMETH 30 ML UNIT-DOSE CUP PO PRN (18:35)
[2024-01-08] MEDS ORDERED: POLYETHYLENE GLYCOL (HEALTHYLAX) 3350 17 GM PACKET PO PRN (18:35)
[2024-01-08] MEDS ORDERED: BENZOCAINE/MENTHOL (CHLORASEPTIC ) LOZENGE MM PRN (18:35)
[2024-01-08] MEDS: hydrOXYzine PAMOATE 25 MG CAPSULE (FP) PO PRN (20:14)
[2024-01-08] MEDS: MELATONIN 5 MG TABLETS PO SCH (21:30)
[2024-01-08] MEDS: IBUPROFEN 600 MG TABLET (FP) PO PRN (21:31)
[2024-01-08] MEDS: METHOCARBAMOL 500 MG TABLET PO PRN (21:31)
[2024-01-08] MEDS: THIAMINE 100 MG TABLET PO SCH (21:33)
[2024-01-09] MEDS ORDERED: cloNIDine HCL 0.1 MG TABLET PO PRN (09:46)
[2024-01-09] MEDS: amLODIPine BESYLATE 5 MG TABLET (FP) PO SCH (10:30)
[2024-01-09] MEDS: methaDONE HCL 10 MG TABLET (FOR DETOX USE ONLY) PO ONE (10:30)
[2024-01-09] MEDS: PRENATAL VITAMINS W/ FOLIC ACID TABLET (FP) PO SCH (10:31)
[2024-01-09 18:11] LABS: POTASSIUM 4.1 mmol/L (3.5-5.1)
[2024-01-09 18:15] LABS: CALCIUM 9.1 mg/dL (8.5-10.1); HEMATOCRIT 41.4 % (35.4-49); HEMOGLOBIN 13.7 GM/dL (11.7-16.9); MCH 30.5 pg (25.7-33.7); MCHC 33.1 g/dl (32.0-35.9); MEAN CELL VOLUME 91.9 fl (80-96); MEAN PLT VOLUME 9.3 fl (7.5-11.1); PLATELET COUNT 205 10^3/uL (134-434); RBC 4.51 M/mm3 (4.00-5.60); RDW 14.8 % (11.9-15.9); WHITE BLOOD COUNT 3.8 K/mm3 (4.0-10.0)
[2024-01-09 18:16] LABS: ALBUMIN 3.4 g/dl (3.4-5.0); BLOOD UREA NITROGEN 16.8 mg/dL (7-18)
[2024-01-09 18:18] LABS: CREATININE 1.1 mg/dL (0.55-1.3)
[2024-01-09 18:19] LABS: BILIRUBIN,TOTAL 0.9 mg/dL (0.2-1); TOT PROT 6.8 g/dl (6.4-8.2)
[2024-01-11] MEDS: methaDONE HCL 10 MG TABLET (FOR DETOX USE ONLY) PO ONE (10:54)
[2024-01-11] MEDS: NICOTINE POLACRILEX 2 MG GUM BUC PRN (17:50)
[2024-01-12] MEDS: methaDONE HCL 10 MG TABLET PO ONE (10:50)
[2024-01-12] MEDS: ACETAMINOPHEN 325 MG TABLET (FP) PO PRN (17:23)
[2024-01-13 06:27] VITALS: BP 113/92; PULSE 67; RESP 18; TEMP 99.3
[2024-01-13] MEDS ORDERED: methaDONE HCL 10 MG TABLET PO ONE (10:00)
[2024-01-13] MEDS ORDERED: methaDONE HCL 10 MG TABLET (FOR DETOX USE ONLY) PO ONE (10:00)
[2024-01-14] MEDS ORDERED: methaDONE HCL 10 MG TABLET PO ONE (10:00)
== END 2024-01-13 09:30 | disposition home or self-care (01) | DRG 773 ==
LOC: YASAS 15:05 → UNDOADMIN 18:41 → Y6N 18:41
PROVIDERS: ADMIT Allergy & Immunology; ATTEND Surgery
PROC: HZ2ZZZZ Detoxification Services for Substance Abuse Treatment (ICD-10-PCS; principal; 2024-01-09)
DX: F11.23 Opioid dependence with withdrawal (principal); F14.20 Cocaine dependence, uncomplicated; F16.20 Hallucinogen dependence, uncomplicated; F17.210 Nicotine dependence, cigarettes, uncomplicated; F19.24 Other psychoactive substance dependence with psychoactive substance-induced mood disorder; F41.9 Anxiety disorder, unspecified; I10 Essential (primary) hypertension; J45.909 Unspecified asthma, uncomplicated; M19.90 Unspecified osteoarthritis, unspecified site; Z91.81 History of falling; Z99.89 Dependence on other enabling machines and devices; Z88.8 Allergy status to other drugs, medicaments and biological substances
CPT/HCPCS: 36415; 80053; 80305; 85027; 86780

== ENCOUNTER 2024-02-03 10:09 | Inpatient (IN) | payer OTHER ==
[2024-02-03 10:59] VITALS: BMI 31.2
[2024-02-03] MEDS ORDERED: POLYETHYLENE GLYCOL (HEALTHYLAX) 3350 17 GM PACKET PO PRN (13:58)
[2024-02-03] MEDS ORDERED: MAG HYDROX/AL HYDROX/SIMETH 30 ML UNIT-DOSE CUP PO PRN (13:58)
[2024-02-03] MEDS ORDERED: NALOXONE (NARCAN) HCL 4 MG/0.1 ML SPRAY NS PRN (13:58)
[2024-02-03] MEDS ORDERED: BENZONATATE 200 MG CAPSULE PO PRN (13:58)
[2024-02-03] MEDS ORDERED: ONDANSETRON *ODT* 4 MG TABLET SL PRN (13:58)
[2024-02-03] MEDS ORDERED: BISMUTH SUBSALICYLATE 262 MG/15 ML BTL PO PRN (13:58)
[2024-02-03] MEDS ORDERED: ACETAMINOPHEN 325 MG TABLET (FP) PO PRN (13:58)
[2024-02-03] MEDS ORDERED: IBUPROFEN 600 MG TABLET (FP) PO PRN (13:58)
[2024-02-03] MEDS ORDERED: BENZOCAINE/MENTHOL (CHLORASEPTIC ) LOZENGE MM PRN (13:58)
[2024-02-03] MEDS ORDERED: LOPERAMIDE HCL 2 MG CAPSULE PO PRN (13:58)
[2024-02-03] MEDS ORDERED: NALOXONE HCL 0.4 MG/ML VIAL IM PRN (13:58)
[2024-02-03] MEDS ORDERED: MAGNESIUM HYDROX 2400MG/30ML ORAL SUSPENSION 30 ML CUP PO PRN (13:58)
[2024-02-03] MEDS ORDERED: guaiFENesin 600 MG TABLET.ER (FP) PO PRN (13:58)
[2024-02-03] MEDS: PRENATAL VITAMINS W/ FOLIC ACID TABLET (FP) PO SCH (17:14)
[2024-02-03] MEDS: NICOTINE 14 MG/24 HOURS TOPICAL PATCH TD SCH (17:14)
[2024-02-03] MEDS: MELATONIN 5 MG TABLETS PO SCH (21:15)
[2024-02-03] MEDS: hydrOXYzine PAMOATE 25 MG CAPSULE (FP) PO PRN (21:15)
[2024-02-03] MEDS: amLODIPine BESYLATE 5 MG TABLET (FP) PO ONE (21:15)
[2024-02-03] MEDS: THIAMINE 100 MG TABLET PO SCH (21:15)
[2024-02-03] MEDS: METHOCARBAMOL 500 MG TABLET PO PRN (21:15)
[2024-02-04] MEDS ORDERED: NALOXONE (NARCAN) HCL 4 MG/0.1 ML SPRAY NS PRN (07:07)
[2024-02-04] MEDS: methaDONE HCL 10 MG TABLET PO ONE (10:00)
[2024-02-04] MEDS: amLODIPine BESYLATE 5 MG TABLET (FP) PO SCH (10:28)
[2024-02-04] MEDS: cloNIDine HCL 0.1 MG TABLET PO SCH (10:28)
[2024-02-04 11:21] LABS: POTASSIUM 3.7 mmol/L (3.5-5.1)
[2024-02-04 11:28] LABS: HEMOGLOBIN 13.8 GM/dL (11.7-16.9); MCH 30.2 pg (25.7-33.7); MCHC 32.9 g/dl (32.0-35.9); MEAN CELL VOLUME 91.8 fl (80-96); MEAN PLT VOLUME 10.2 fl (7.5-11.1); PLATELET COUNT 146 10^3/uL (134-434); RBC 4.58 M/mm3 (4.00-5.60); RDW 15.2 % (11.9-15.9); WHITE BLOOD COUNT 6.5 K/mm3 (4.0-10.0)
[2024-02-04 11:40] LABS: ALBUMIN 3.3 g/dl (3.4-5.0)
[2024-02-04 11:41] LABS: BLOOD UREA NITROGEN 15.5 mg/dL (7-18)
[2024-02-04 11:44] LABS: BILIRUBIN,TOTAL 0.7 mg/dL (0.2-1); CREATININE 1.1 mg/dL (0.55-1.3)
[2024-02-04 11:46] LABS: CALCIUM 8.7 mg/dL (8.5-10.1)
[2024-02-04] MEDS: methaDONE HCL 40 MG DISPERSABLE TABLET PO ONE (13:10)
[2024-02-04] MEDS: CEPHALEXIN MONOHYDRATE 500 MG CAPSULE (UD) PO SCH (13:51)
[2024-02-04] MEDS: methaDONE HCL 10 MG TABLET PO PRN (22:20)
[2024-02-05] MEDS: IBUPROFEN 400 MG TABLET (FP) PO PRN (05:40)
[2024-02-05] MEDS: methaDONE 40 MG, methaDONE 10 MG PO ONE (09:38)
[2024-02-06] MEDS ORDERED: cloNIDine HCL 0.1 MG TABLET PO PRN
[2024-02-06] MEDS: DICYCLOMINE HCL 10 MG CAPSULE PO PRN (01:39)
[2024-02-06] MEDS: MUPIROCIN CA 2% TOPICAL CREAM 15 GM TUBE TP SCH (10:28)
[2024-02-06] MEDS: methaDONE 40 MG, methaDONE 20 MG PO ONE (10:31)
[2024-02-07 09:53] VITALS: BP 112/77; PULSE 71; RESP 19; TEMP 97.3
[2024-02-07] MEDS: methaDONE 40 MG, methaDONE 30 MG PO ONE (10:00)
[2024-02-08] MEDS ORDERED: methaDONE HCL 40 MG DISPERSABLE TABLET PO ONE (10:00)
[2024-02-09] MEDS ORDERED: methaDONE 80 MG, methaDONE 10 MG PO ONE (10:00)
== END 2024-02-07 09:50 | disposition home or self-care (01) | DRG 773 ==
LOC: YASAS 10:09 → Y6N 16:03
PROVIDERS: ADMIT Allergy & Immunology; ATTEND Surgery
PROC: HZ2ZZZZ Detoxification Services for Substance Abuse Treatment (ICD-10-PCS; principal; 2024-02-03)
DX: F11.23 Opioid dependence with withdrawal (principal); F14.20 Cocaine dependence, uncomplicated; F16.20 Hallucinogen dependence, uncomplicated; F12.20 Cannabis dependence, uncomplicated; F17.210 Nicotine dependence, cigarettes, uncomplicated; F25.9 Schizoaffective disorder, unspecified; F19.282 Other psychoactive substance dependence with psychoactive substance-induced sleep disorder; F19.24 Other psychoactive substance dependence with psychoactive substance-induced mood disorder; L03.115 Cellulitis of right lower limb; M17.11 Unilateral primary osteoarthritis, right knee; R74.01 Elevation of levels of liver transaminase levels; Z86.19 Personal history of other infectious and parasitic diseases; Z99.89 Dependence on other enabling machines and devices; Z56.0 Unemployment, unspecified; Z59.00 Homelessness unspecified
CPT/HCPCS: 36415; 80053; 80305; 80307; 85027; 86780; 93005; 93010

== ENCOUNTER 2024-03-23 16:37 | Inpatient (IN) | payer OTHER ==
[2024-03-23] MEDS ORDERED: BENZOCAINE/MENTHOL (CHLORASEPTIC ) LOZENGE MM PRN (17:54)
[2024-03-23] MEDS ORDERED: BISMUTH SUBSALICYLATE 524 MG/30 ML PO PRN (17:54)
[2024-03-23] MEDS ORDERED: POLYETHYLENE GLYCOL (HEALTHYLAX) 3350 17 GM PACKET PO PRN (17:54)
[2024-03-23] MEDS ORDERED: MAG HYDROX/AL HYDROX/SIMETH 30 ML UNIT-DOSE CUP PO PRN (17:54)
[2024-03-23] MEDS ORDERED: hydrOXYzine PAMOATE 25 MG CAPSULE (FP) PO PRN (17:54)
[2024-03-23] MEDS ORDERED: IBUPROFEN 600 MG TABLET (FP) PO PRN (17:54)
[2024-03-23] MEDS ORDERED: DICYCLOMINE HCL 10 MG CAPSULE PO PRN (17:54)
[2024-03-23] MEDS ORDERED: ONDANSETRON *ODT* 4 MG TABLET SL PRN (17:54)
[2024-03-23] MEDS ORDERED: NICOTINE POLACRILEX 2 MG GUM BUC PRN (17:54)
[2024-03-23] MEDS ORDERED: IBUPROFEN 400 MG TABLET (FP) PO PRN (17:54)
[2024-03-23] MEDS ORDERED: NALOXONE HCL 0.4 MG/ML VIAL IM PRN (17:54)
[2024-03-23] MEDS ORDERED: ACETAMINOPHEN 325 MG TABLET (FP) PO PRN (17:54)
[2024-03-23] MEDS ORDERED: BENZONATATE 200 MG CAPSULE PO PRN (17:54)
[2024-03-23] MEDS ORDERED: guaiFENesin 600 MG TABLET.ER (FP) PO PRN (17:54)
[2024-03-23] MEDS ORDERED: MAGNESIUM HYDROX 2400MG/30ML ORAL SUSPENSION 30 ML CUP PO PRN (17:54)
[2024-03-23] MEDS ORDERED: LOPERAMIDE HCL 2 MG CAPSULE PO PRN (17:54)
[2024-03-23] MEDS ORDERED: NICOTINE POLACRILEX 2 MG LOZENGE BC PRN (17:54)
[2024-03-23] MEDS ORDERED: NALOXONE (NARCAN) HCL 4 MG/0.1 ML SPRAY NS PRN (17:54)
[2024-03-23] MEDS: THIAMINE 100 MG TABLET PO SCH (21:47)
[2024-03-23] MEDS: amLODIPine BESYLATE 5 MG TABLET (FP) PO SCH (21:47)
[2024-03-23] MEDS: MELATONIN 5 MG TABLETS PO SCH (21:47)
[2024-03-24] MEDS: PRENATAL VITAMINS W/ FOLIC ACID TABLET (FP) PO SCH (10:53)
[2024-03-24 12:00] LABS: HEMATOCRIT 39.3 % (35.4-49); MCHC 33.1 g/dl (32.0-35.9); MEAN CELL VOLUME 90.4 fl (80-96); PLATELET COUNT 182 10^3/uL (134-434); RBC 4.35 M/mm3 (4.00-5.60); RDW 15.9 % (11.9-15.9)
[2024-03-24 12:02] LABS: POTASSIUM 3.6 mmol/L (3.5-5.1)
[2024-03-24 12:04] LABS: ALBUMIN 3.3 g/dl (3.4-5.0); BLOOD UREA NITROGEN 13.2 mg/dL (7-18)
[2024-03-24 12:08] LABS: BILIRUBIN,TOTAL 0.9 mg/dL (0.2-1)
[2024-03-24 12:09] LABS: TOT PROT 6.8 g/dl (6.4-8.2)
[2024-03-24] MEDS: methaDONE HCL 10 MG TABLET (FOR DETOX USE ONLY) PO ONE (12:53)
[2024-03-26] MEDS: methaDONE HCL 10 MG TABLET (FOR DETOX USE ONLY) PO ONE (10:14)
[2024-03-26] MEDS: METHOCARBAMOL 500 MG TABLET PO PRN (22:09)
[2024-03-26] MEDS: cloNIDine HCL 0.1 MG TABLET PO PRN (22:09)
[2024-03-28] MEDS: methaDONE HCL 10 MG TABLET (FOR DETOX USE ONLY) PO ONE (09:58)
[2024-03-30 09:27] VITALS: BP 100/66; PULSE 67; RESP 18; TEMP 97.1
[2024-03-30] MEDS ORDERED: ALBUTEROL SO4 HFA INHALER IH PRN (09:43)
== END 2024-03-30 10:13 | disposition home or self-care (01) | DRG 773 ==
LOC: YASAS 16:37 → Y6N 20:13
PROVIDERS: ADMIT Allergy & Immunology; ATTEND Psychiatry & Neurology Pain Medicine
PROC: HZ2ZZZZ Detoxification Services for Substance Abuse Treatment (ICD-10-PCS; principal; 2024-03-23)
DX: F11.23 Opioid dependence with withdrawal (principal); F14.20 Cocaine dependence, uncomplicated; F12.20 Cannabis dependence, uncomplicated; F17.210 Nicotine dependence, cigarettes, uncomplicated; F25.9 Schizoaffective disorder, unspecified; F19.282 Other psychoactive substance dependence with psychoactive substance-induced sleep disorder; I10 Essential (primary) hypertension; J45.909 Unspecified asthma, uncomplicated; M17.11 Unilateral primary osteoarthritis, right knee; Z86.19 Personal history of other infectious and parasitic diseases; Z56.0 Unemployment, unspecified; Z59.00 Homelessness unspecified
CPT/HCPCS: 36415; 80053; 80305; 85027